=== PATIENT | female | born 1995 | race Caucasian/White ===

== ENCOUNTER 2024-06-27 12:00 | Emergency (ER) | payer OTHER, SELFPAY ==
[2024-06-27 12:08] VITALS: BP 160/88; PULSE 92; TEMP 36.8; O2SAT 96; BMI 37.1
--- NOTE | 2024-06-27 12:22 | XR_ITS ---
The [address] [address] Patient Name: PABLO MARTIN MRN: [id number] date: 1995 Sex: F Assigned Patient Location: ER Current Patient Location: ER Accession/Order Number: [id number] Exam Date: 06/27/2024 12:38 Report Date: 06/27/2024 12:57 At the request of: SANTY RAPHAEL Procedure: XR chest 1V EXAMINATION: XR chest 1V HISTORY: cough COMPARISON: No relevant comparison available. FINDINGS: LUNGS: Mild haziness and subtle patchy opacities scattered within the left lung. VASCULATURE: No increased pulmonary vasculature. PLEURA: No pneumothorax, effusion, or pleural thickening. CARDIAC: No cardiomegaly or cardiac silhouette abnormality. MEDIASTINUM: No visible mass or adenopathy. BONES: No fracture or visible bone lesion. OTHER: Negative. XR/XR chest 1V IMPRESSION: 1. Underexpanded lungs with suspected mild left pulmonary infiltrates versus atelectasis. Electronically authenticated by: LIZA OSMAN Date: 06/27/2024 12:57
[2024-06-27] MEDS: PREDNISONE 20 MG TABLET 40 MG PO (12:34)
[2024-06-27] MEDS: KETOROLAC TROMETHAMINE 30 MG/ML VIAL IM (12:39)
[2024-06-27] MEDS: IPRATROPIUM/ALBUTEROL SULFATE 3 ML AMPUL.NEB IH (12:40)
[2024-06-27 12:43] VITALS: PULSE 100; O2SAT 98
[2024-06-27 13:02] LABS: Internal Control Within Normal Limits; Respiratory Syncytial Virus Not Detected (NOT DETECTE); SARS-CoV-2 Ag NEGATIVE (NEGATIVE)
[2024-06-27 13:11] LABS: Influenza Virus A Antigen Negative; Influenza Virus B Antigen Negative; Internal Control Within Normal Limits
[2024-06-27] MEDS: LEVOFLOXACIN 750 MG TABLET PO (13:40)
[2024-06-27 13:43] VITALS: BP 136/88; PULSE 86; O2SAT 98
--- NOTE | 2024-06-27 14:01 | ED.GENADUL1 ---
HPI HPI - General Adult General Chief complaint: Upper Respiratory Infection Stated complaint: urti complaints Time Seen by Provider: 06/27/24 12:15 Mode of arrival: walk-in History of Present Illness HPI narrative: The patient presented to us with a almost 5 days history of flulike symptoms, but she mentioned that the cough is not getting any better she is also have some congestion and difficulty whenever she take a deep breath The patient have no sore throat there is some change in her voice No nausea no vomiting no diarrhea Related Data Previous Rx's ?Medication ?Instructions ?Recorded levofloxacin 750 mg tablet 750 mg PO DAILY 7 days #7 tabs 06/27/24 prednisone 20 mg tablet 40 mg (2 x 20 mg) PO DAILY 5 days 06/27/24 #10 tabs Allergies Allergy/AdvReac Type Severity Reaction Status Date / Time amoxicillin AdvReac Severe Hives Verified 06/27/24 12:08 Penicillins AdvReac Severe Hives Verified 06/27/24 12:08 Opioid HPI Opioid Management Most Recent Opioid Data: No Data to Display Review of Systems ROS Status of ROS 10 or more systems reviewed and unremarkable except as noted in history and below PFSH PFSH Social History Little interest or pleasure in doing things: not at all Feeling down, depressed, or hopeless: not at all Exam Narrative Exam Narrative: Nurses notes and vital signs reviewed and patient is not hypoxic. General: Well-appearing and in no apparent distress. Skin: Warm, dry, no pallor noted. No rash. Head: Normocephalic, atraumatic. Neck: Supple, non-tender. Eye: Pupils are equal, round and EOMI. No scleral icterus. Ears, Nose, Mouth, and Throat: TM are clear, no nasal mucosal hypertrophy. Oral mucosa is moist, no posterior oropharynx erythema, uvula is mid-line Cardiovascular: Regular Rate and Rhythm without murmur, gallop or rub. Respiratory: Rhonchi heard in both lung gallo Back: No midline thoracic or lumbar vertebral tenderness. No CVA tenderness Musculoskeletal: normal ROM, no calf or popliteal tenderness, no lower extremity edema/swelling GI: Abdomen is soft, non-distended. Normal bowel sounds. No masses appreciated. No tenderness to palpation. No rebound, guarding, or rigidity noted. Neurological: A&O x4. No cranial nerve dysfunction observed. No truncal ataxia. Moves all extremities. Sensation intact. Psychiatric: Cooperative and interactive. Normal mood and affect. Constitutional Vital Signs, click to edit/add: Last Vital Signs Temp 98.2 F 06/27/24 12:08 Pulse 86 06/27/24 13:43 Resp 18 06/27/24 13:43 BP 136/88 06/27/24 13:43 Pulse Ox 98 06/27/24 13:43 O2 Del Method Room Air 06/27/24 12:43 Course Vital Signs Vital signs: Vital Signs Temperature 98.2 F 06/27/24 12:08 Pulse Rate 92 H 06/27/24 12:08 Respiratory Rate 18 06/27/24 12:08 Blood Pressure 160/88 H 06/27/24 12:08 Pulse Oximetry 96 06/27/24 12:08 Oxygen Delivery Method Room Air 06/27/24 12:08 Temperature 98.2 F 06/27/24 12:08 Pulse Rate 86 06/27/24 13:43 Respiratory Rate 18 06/27/24 13:43 Blood Pressure 136/88 06/27/24 13:43 Pulse Oximetry 98 06/27/24 13:43 Oxygen Delivery Method Room Air 06/27/24 12:43 Medical Decision Making MDM Narrative Medical decision making narrative: The patient chest x-ray shows possible infiltrate in the left side COVID flu and RSV are negative Patient will be covered with levofloxacin in addition to prednisone only to help with her laryngitis Patient to continue hydration The patient is to follow up with primary care physician in next 2-3 days or to return to the emergency department should any of the signs or symptoms worsen or new symptoms develop. The patient agrees with the following Diagnosis and Treatment plan and the patient will be discharged home. Lab Data Labs: Lab Results 06/27/24 Range/Units 12:15 Influenza Type A Ag Negative Influenza Type B Ag Negative RSV Antigen Not detected (NOT DETECTE) SARS-CoV-2 Ag (CV2AG) Negative (NEGATIVE) Discharge Plan Discharge Chief Complaint: Upper Respiratory Infection Clinical Impression: Pneumonia, Laryngitis Patient Disposition: Home, Self-Care Time of Disposition Decision: 13:37 Condition: Good Prescriptions / Home Meds: New levofloxacin 750 mg tablet 750 mg PO DAILY 7 Days Qty: 7 0RF prednisone 20 mg tablet 40 mg PO DAILY 5 Days Qty: 10 0RF Print Language: Greenlandic Instructions: Community Acquired Pneumonia (DC) Referrals: REBECCA ARMSTRONG [Primary Care Provider] - 1 week Discharge Date/Time: 06/27/24 13:43
== END 2024-06-27 13:43 | disposition home or self-care (01) ==
PROVIDERS: Emergency Provider Emergency Medicine; PCP Internal Medicine
DX: J18.9 Pneumonia, unspecified organism (principal); J04.0 Acute laryngitis
CPT/HCPCS: 71045; 87420; 87804; 87811; 94640; 96372; 99284; J1885; J7512

== ENCOUNTER 2025-06-15 13:54 | Emergency (ER) | payer MEDICAID, SELFPAY ==
--- OUTSIDE RECORDS SUMMARY | 2011-08-18 10:45 | XMS_ITS | Continuity of Care Document ---
Author Organization [facility] Address [address] [place] [address] Phone Care Team Providers Care Line Palletizer Name Role Phone NathalyMaury Aguira Unavailable Unavailable Allergies, Adverse Reactions, Alerts Substance Reaction Status Criticality amoxicillin rash Active No Information Procedures Procedure Date HEP A VACC, PED/ADOL, 2 DOSE H PAPILLOMA VACC 3 DOSE IM PREVENTIVE COUNSELING, INDIV PREVENTIVE COUNSELING, INDIV HEP A VACC, PED/ADOL, 2 DOSE H PAPILLOMA VACC 3 DOSE IM H PAPILLOMA VACC 3 DOSE IM PREVENTIVE COUNSELING, INDIV OFFICE/OUTPATIENT VISIT, EST H PAPILLOMA VACC 3 DOSE IM PREVENTIVE COUNSELING, INDIV HEP A VACC, PED/ADOL, 2 DOSE H PAPILLOMA VACC 3 DOSE IM MENINGOCOCCAL VACCINE, IM TDAP VACCINE >7 IM Advance Directives Directive Yes / No Effective Date File Name Resuscitation Not Answered N/A N/A Life Support Not Answered N/A N/A Intubation Not Answered N/A N/A Antibiotics Not Answered N/A N/A IV Fluid Support Not Answered N/A N/A Tube Feed Not Answered N/A N/A Other Directive N/A N/A WARNING:The information contained in this section is historical and is provided for information only and does not constitute a legal document or any assurance that the information is still accurate. Please verify the information with the thomas of the legal document before using it for clinical purposes. Encounters Encounter Description Practice Location Reason(s) For Visit Diagnoses Date Provider Providers Copied on Encounter PREVENTIVE COUNSELING, [facility], [address], [place], [id number], [place] tel:[phone] [facility] Need for prophylactic vaccination and inoculation against viralhepatitis [facility]. [address], [place], [id number] , [place]. tel:[phone] PREVENTIVE COUNSELING, [facility], [address] [place] [address], [id number], [place] tel:[phone] [facility] Need for prophylactic vaccination and inoculation, other viral diseases [facility]. [address], [place], [id number] , [place]. tel:[phone] PREVENTIVE COUNSELING, [facility], [address], [place], [id number], [place] tel:[phone] [facility] No Information Nathalyi DO Mendiola. [address], [place], [id number] , [place]. tel:[phone] Family History Family Member Type Diagnosis Age At Onset No Information Immunizations Vaccine Date Status Comments HPV administered Source: New Imm unization Record Hep A (ped/adol, 2 dose) administered Radha rce: New Immunization Record HPV administered Source: New Imm unization Record HPV administered Source: New Imm unization Record Hep A (ped/adol, 2 dose) administered Radha rce: New Immunization Record Tdap administered Source: New Imm unization Record MCV4 (11-55 yrs) administered Source: New Immunization Record Payers Payer name Insurance type Covered republican ID Authoriza tion(s) No Information Social History Type Description Quantity Date Captured Comments Alcohol Use Details Unknown Caffeine Use Details Unknown Tobacco Use Status No Information Smoking Status No Information Sex Female Sexual Orientation Straight or heterosexual Mar Gender Identity Female Chief Complaint And Reason For Visit No Information Reason For Referral Reason For Referral No Information Plan Of Treatment Date Type Action Status Goal HPV (3rd). Due on 2 due Goal TD Vaccine. Due on 11 due Goal HPV (2nd). Due on 1 due Goal HPV (1st). Due on 1 due History Of Present Illness Encounter Date Complaint History Of Prese nt Illness No Information Functional Status Date Functional Assessmen t No Information Instructions Date Instruction Additional Infor mation No Information Assessments Type Assessment Date No Information Patient Care Teams Name Effective Dates (start - stop) Status Members No Information
[2025-06-15] VITALS (12 sets, daily range): BP systolic 135–159; BP diastolic 78–96; PULSE 104; TEMP 37.1; O2SAT 98–100; BMI 31.3
--- NOTE | 2025-06-15 14:10 | ED_ITS ---
HPI HPI - General Adult General Chief complaint: Allergic Reaction Stated complaint: POSSIBLE ALLERGIC REACTION Time Seen by Provider: 06/15/25 14:06 History of Present Illness HPI narrative: 29-year-old female presented for hives. They are on various areas of her body and it started last night. She took some Benadryl and fexofenadine but it did not help. No new medications or exposure to any new products. She is known to be allergic to cats and dogs and 2 types of mold. No difficulty breathing or swallowing. Related Data Previous Rx's ?Medication ?Instructions ?Recorded levofloxacin 750 mg tablet 750 mg PO DAILY 7 days #7 t abs 06/27/24 prednisone 20 mg tablet 40 mg (2 x 20 mg) PO DAILY 5 days 06/27/24 #10 tabs prednisone 10 mg tablet See Rx Instructions .Route 1 08/16/24 .COMPLEX #30 tabs Allergies Allergy/AdvReac Type Severity Reaction Status Date / Time amoxicillin AdvReac Severe Hives Verified 06/15/25 14:07 Penicillins AdvReac Severe Hives Verified 06/15/25 14:07 PET DANDER Allergy Severe Hives Uncoded 06/15/25 14:07 Review of Systems ROS Narrative A ten point review of systems is negative except as noted above. PFSH PFSH Social History Little interest or pleasure in doing things: not at all Feeling down, depressed, or hopeless: not at all Exam Narrative Exam Narrative: Nurses note and vital signs reviewed General:The patient appears well and in no apparent distress.Patient is resting comfortably on cart. Skin:Warm, dry, no pallor noted.There is urticaria in various areas of her body, primarily her torso but also present on her arms and legs. She has no tongue swelling. Head:Normocephalic, atraumatic Eye: Normal conjunctiva, no drainage Ears, Nose, Mouth, and Throat: oral mucosa is moist. Nares patent. Cardiovascular:Regular Rate and Rhythm Respiratory:Patient is in no distress, no accessory muscle use, lungs are clear to auscultation, no wheezing, rales or rhonchi Back:non-tender GI: Soft and nontender Musculoskeletal: The patient has no evidence of calf tenderness, no pitting edema, symmetrical pulses noted bilaterally Neurological:A&O, normal speech Psychiatric:Cooperative Constitutional Vital Signs, click to edit/add: Last Vital Signs Temp 98.7 F 12/14/25 14:11 Pulse 104 H 06/15/25 14:11 Resp 20 06/15/25 14:11 BP 159/96 H 06/15/25 14:11 Pulse Ox 100 06/15/25 14:11 O2 Del Method Room Air 06/15/25 14:11 Course Vital Signs Vital signs: Vital Signs Temperature 98.7 F 06/15/25 14:11 Pulse Rate 104 H 06/15/25 14:11 Respiratory Rate 20 06/15/25 14:11 Blood Pressure 159/96 H 06/15/25 14:11 Pulse Oximetry 100 06/15/25 14:11 Oxygen Delivery Method Room Air 06/15/25 14:11 Temperature 98.7 F 06/15/25 14:11 Pulse Rate 104 H 06/15/25 14:11 Respiratory Rate 20 06/15/25 14:11 Blood Pressure 159/96 H 06/15/25 14:11 Pulse Oximetry 100 06/15/25 14:11 Oxygen Delivery Method Room Air 06/15/25 14:11 Medical Decision Making MDM Narrative Medical decision making narrative: The patient presented with urticaria. She has not been on any new medications or been exposed to any new products. She states she has been under a lot of stress recently and this is certainly a possible cause for her symptoms. She was given IV Benadryl and Solu-Medrol and is greatly improved. She will be discharged home on prednisone and will continue yaxq-fpi-kxrzbrs Benadryl. Treatment diagnosis and follow-up were discussed with the patient. Differential Diagnosis Differential Diagnosis: Urticaria, allergic reaction Discharge Plan Discharge Chief Complaint: Allergic Reaction Clinical Impression: Urticaria Patient Disposition: Home, Self-Care Time of Disposition Decision: 15:25 Condition: Good Mode of Transportation: Private Vehicle Prescriptions / Home Meds: New prednisone 10 mg tablet See Rx Instructions .ROUTE .COMPLEX Qty: 30 0RF Rx Instructions: 4 by mouth daily for three days then 3 by mouth daily for three days then 2 by mouth daily for three days then 1 by mouth daily for three days No Action levofloxacin 750 mg tablet 750 mg PO DAILY 7 Days Qty: 7 0RF prednisone 20 mg tablet 40 mg PO DAILY 5 Days Qty: 10 0RF Print Language: Greenlandic Instructions: Urticaria (ED) Referrals: REBECCA ARMSTRONG [Primary Care Provider, Internal Medicine] - 1 week
--- OUTSIDE RECORDS SUMMARY | 2025-06-15 14:22 | XMS_ITS | Clinical Summary ---
Author Organization [facility] Address [address] [place] [address] Care Team Providers Care Loss Control Engineer Name Role Phone Drake Briggs DO Primary Care Provider [phone] Allergies Active AllergyReactionsCriticalityNoted BhtlOwfipsqkNnhzzximuqiAhpov73/07/2023 Medications MedicationSigDispense QuantityRefillsLast FilledStart DateEnd DateStatus albuterol HFA (Ventolin HFA) 90 mcg/act inhaler Indications:WheezingInhale 2 puffs every 6 (six) hours if needed for wheezing or shortness of breath 8 g 5Active cholecalciferol (Vitamin D-3) 50 MCG (1999) tablet Indications:Low vitamin D levelTake 1 tablet (50 mcg) by mouth Daily07/17/2024 6Active phentermine (Adipex-P) 37.5 MG tablet Take 37.5 mg by mouth Daily5Active sertraline (Zoloft) 50 MG tablet Indications:Anxiety and depressionTake 1 tablet (50 mg) by mouth Daily 90 tablet //6Active elagolix (Orilissa) tablet Indications:Endometriosis of peritoneumTake 1 tablet (150 mg) by mouth Daily 90 each /6Active omeprazole (PriLOSEC) [address] capsule Indications:Gastroesophageal reflux disease, unspecified whether esophagitis presentTAKE 1 CAPSULE BY MOUTH EVERY DAY DO NOT CRUSH OR CHEW 90 capsule 5Active Active Problems ProblemNoted DateDiagnosed DateLow vitamin D level07/17/2024Insulin resistance 07/17/2024Elevated LDL cholesterol level07/17/2024History of pre-eclampsia 07/17/2024sthma, exercise uerbgmg3205/05/2023 Overview (05/05/2023): no inhaler Abdominal pain, chronic, left lower oqiltiuy31/03/2023Status post laparoscopic assisted vaginal hysterectomy (LAVH)05/05/2023lass 2 obesity due to excess calories without serious comorbidity with body mass index (BMI) of 35.0 to 35.9 in adult05/05/2023Retained qnbfiw6605/05/2023 Overview (05/05/2023): suspicious that this resulted in cystic encasement , hence the anechoic rounded soft tissue areas with echodensity within- Video - given talk w/ Dr pedraza Adjustment disorder with mixed anxiety and depressed mood11/30/2022 Methylenetetrahydrofolate reductase tgwdpldyuf23/31/2023 Overview (05/05/2023): 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 : confers increased risk HC and if elevated HC then increased risk for thrombosis Immunizations ImmunizationAdministration DatesNext DueDTaP, Fxbhvpzxgtg43/07/2001,03/06/1997, 03/11/1996,01/04/1996,1995HPV, Elgapeznettf22/16/2012,03/16/2011, 01/13/2011Hep A, ped/adol, 2 dose08/18/2011,01/13/2011Hep B, Adolescent or Poisavabs56/09/1996,1995,1995HiB, exzlsfmtdlx43/11/1997,03/11/1996, 01/04/1996,1995MMR11/06/2000MMRV09/10/1996Meningococcal MYK6T8001/13/2011 Novel Wolubjkku-K7N8-58, nasal05/01/2009Polio, Plvnsoksubd52/07/2001,03/06/1997, 03/11/1996,01/04/1996,1995Tdap01/03/2019,11/12/2017,01/13/2011Varicella 12/03/1996 Family History Medical HistoryRelationNameCommentsNo Known ProblemsDaughterDiabetesFatherRobert A GardinPre diabetesHyperlipidemiaFatherRobert A GardinHypertensionFatherRobert A GardinSleep apneaFatherRobert A GardinHeart diseaseMaternal GrandfatherErnest R TeschnerHypertensionMaternal GrandfatherErnest R TeschnerArthritisMother Lisa A GardinHeart diseaseMotherJennifer A GardinHypertensionMotherJennifer A GardinLupusMotherJennifer A GardinThyroid diseaseMotherJennifer A GardinBreast cancerOtherHeart diseasePaternal GrandfatherMTHFR genePaternal Grandfather DiabetesPaternal GrandmotherSandra L Gardinpre diabetesHypertensionPaternal GrandmotherSandra L GardinMTHFR genePaternal GrandmotherSandra L GardinProstate cancerPaternal Great-GrandfatherBreast cancerPaternal Great-GrandmotherNo Known ProblemsSonRelationNameStatusCommentsBrother2 brothersDaughterFatherRobert A GardinAliveMaternal GrandfatherErnest R TeschnerDeceasedMotherJennifer A Gardin AliveOtherPaternal grandmother sisters and cousinPaternal GrandfatherPaternal GrandmotherSandra L GardinPaternal Great-GrandfatherPaternal Great-Grandmother Son Social History Tobacco UseTypesPacks/DayYears UsedDateSmoking Tobacco: NeverSmokeless Tobacco: Never Tobacco Cessation:Counseling Given: Not Answered Alcohol UseStandard Drinks/WeekCommentsYes2 (1 standard drink = 0.6 oz pure alcohol)Social drinker, once or twice a month, Caffeine intake: 1-2 cups per day coffee daily, tea, occasionally sodaAUDIT-CAnswerDate RecordedQ1: How often do you have a drink containing alcohol?Monthly or less05/08/2023Q2: How many drinks containing alcohol do you have on a typical day when you are drinking?1 or 2 05/08/2023Q3: How often do you have six or more drinks on one occasion?Never 05/08/2023CommentsUnknownSex and Gender InformationValueDate RecordedSex Assigned at DkzqjOjkizv40/31/2023 9:35 AM EDTLegal SgiPqjccv41/15/2023 7:23 PM EDTGender SukghavsCdngkh68/31/2023 9:35 AM EDTSexual OrientationStraight 11/30/2022 9:35 AM EDTOccupationIndustryJob Start DateJob End DateCosmetologist Not on fileNot on fileNot on file Last Filed Vital Signs Vital SignReadingTime TakenCommentsBlood Ycfioyxl731/8406 1:59 PM EDT Fxyjy4459 7:30 PM PSYNcwqnldcamz74.4 ??C (97.5 ??F)10/24/2024 7:30 PM EDTRespiratory Ljua752007/10/2024 1:19 PM ESTOxygen Vexzhzgqty14%10/24/2024 7:30 PM EDTInhaled Oxygen Concentration--Tikvmq18.4 kg (206 lb)12/26/2024 1:59 PM EDT Bjynlo715.2 cm (5' 7 )07/17/2024 11:13 AM ESTBody Mass Index32.26007/17/2024 11:13 AM EST Plan of Treatment DateTypeDepartmentCare Team (Latest Contact Info)Qddnaupcukh16/21/2026 11:00 AM ESTOffice Visit [facility] [address] [place] [address] Drake Briggs, DO [address] [place] [address] 01/01/2026 1:30 PM EDTOffice Visit [facility] [address] [place] [address] Saige Pedraza DO [address] [place] [address] Health MaintenanceDue DateLast DoneCommentsPneumococcal Vaccine: Pediatrics (0 to 5 Years) and At-Risk Patients (6 to 64 Years) (1 of 2 - PCV)08/31/2014COVID- 19 Vaccine (3 - 2024-26 season)/05/2021, 11/17/2020Influenza Vaccine (#1)2025 Insurance [facility] Address: [facility] [id number] [place] [id number] Care Teams Team MemberRelationshipSpecialtyStart DateEnd Date Drake Briggs DO [address] [facility] [address] [address] PCP - GeneralInternal Medicine12/07/22
[2025-06-15] MEDS: METHYLPREDNISOLONE SOD SUCC PF 125 MG/2 ML VIAL IVP (14:32)
[2025-06-15] MEDS: FAMOTIDINE/PF 20 MG/2 ML VIAL IV (14:32)
[2025-06-15] MEDS: DIPHENHYDRAMINE HCL 50 MG/ML VIAL IVP (14:32)
== END 2025-06-15 15:33 | disposition home or self-care (01) ==
PROVIDERS: Emergency Provider Emergency Medicine; PCP Internal Medicine
DX: L50.9 Urticaria, unspecified (principal)
CPT/HCPCS: 96374; 96375; 99284; J1200; J2919; J3490

== ENCOUNTER 2025-06-16 02:32 | Emergency (ER) | payer MEDICAID, SELFPAY ==
--- OUTSIDE RECORDS SUMMARY | 2011-08-18 10:45 | XMS_ITS | Continuity of Care Document ---
Author Organization [facility] Address [address] [place] [address] Phone Care Team Providers Care Clothing Sorter Name Role Phone NathalyMaury Aguiar Unavailable Unavailable Allergies, Adverse Reactions, Alerts Substance [...] Provider Providers Copied on Encounter PREVENTIVE COUNSELING, [facility], [address], [place], [id number], [place] tel:[phone] [facility] Need for prophylactic vaccination and inoculation against viralhepatitis [facility]. [address], [place], [id number] , [place]. tel:[phone] PREVENTIVE COUNSELING, [facility], [address] [place] [address], [id number], [place] tel:[phone] [facility] Need for prophylactic vaccination and inoculation, other viral diseases [facility]. [address], [place], [id number] , [place]. tel:[phone] PREVENTIVE COUNSELING, [facility], [address], [place], [id number], [place] tel:[phone] [facility] No Information Nathalyi DO Mendiola. [address], [place], [id number] , [place]. tel:[phone] Family History Family Member Type Diagnosis Age [...] Record Payers Payer name Insurance type Covered democrat ID Authoriza tion(s) No Information Social History [...]
[2025-06-16 02:35] VITALS: BP 156/88; PULSE 85; TEMP 36.7; O2SAT 98; BMI 32.3
--- OUTSIDE RECORDS SUMMARY | 2025-06-16 02:49 | XMS_ITS | Clinical Summary ---
Author Organization [facility] Healthcare Address [address] [place] [address] Care Team Providers Care Counter Cutter Name Role Phone Drake Briggs DO Primary Care Provider [phone] Allergies Active AllergyReactionsCriticalityNoted GtsxDiqxbjzmZddsmolnmuaWlggf24/07/2023 Medications MedicationSigDispense QuantityRefillsLast FilledStart DateEnd DateStatus albuterol [...] LDL cholesterol level07/17/2024History of pre-eclampsia 07/17/2024sthma, exercise ifsgdoi1405/05/2023 Overview (05/05/2023): no inhaler Abdominal pain, chronic, left lower zognfgiq91/03/2023Status post laparoscopic assisted vaginal hysterectomy (LAVH)05/05/2023lass 2 obesity due to excess calories without serious comorbidity with body mass index (BMI) of 35.0 to 35.9 in adult05/05/2023Retained rukgeh8205/05/2023 Overview (05/05/2023): suspicious that this resulted in cystic encasement , hence the anechoic rounded soft tissue areas with echodensity within- Video - given talk w/ Dr pedraza Adjustment disorder with mixed anxiety and depressed mood11/30/2022 Methylenetetrahydrofolate reductase mestsoaijf08/31/2023 Overview (05/05/2023): 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 : confers increased risk HC and if elevated HC then increased risk for thrombosis Immunizations ImmunizationAdministration DatesNext DueDTaP, Uisdtqwyjmn64/07/2001,03/06/1997, 03/11/1996,01/04/1996,1995HPV, Uhuqdqiajffv41/16/2012,03/16/2011, 01/13/2011Hep A, ped/adol, 2 dose08/18/2011,01/13/2011Hep B, Adolescent or Sukwaynij16/09/1996,1995,1995HiB, jgvvsnmuxvn92/11/1997,03/11/1996, 01/04/1996,1995MMR11/06/2000MMRV09/10/1996Meningococcal EGW3N4601/13/2011 Novel Rdehgsyyy-E3P3-53, nasal05/01/2009Polio, Binilvvkvba06/07/2001,03/06/1997, 03/11/1996,01/04/1996,1995Tdap01/03/2019,11/12/2017,01/13/2011Varicella 12/03/1996 Family History Medical HistoryRelationNameCommentsNo Known [...] 05/08/2023CommentsUnknownSex and Gender InformationValueDate RecordedSex Assigned at XgfifXqkrms67/31/2023 9:35 AM EDTLegal MrmKlghdj72/15/2023 7:23 PM EDTGender EgejwcteKjvifc48/31/2023 9:35 AM EDTSexual OrientationStraight 11/30/2022 9:35 AM EDTOccupationIndustryJob Start DateJob End DateCosmetologist Not on fileNot on fileNot on file Last Filed Vital Signs Vital SignReadingTime TakenCommentsBlood Snkxlmpm656/8406 1:59 PM EDT Feyhg2001 7:30 PM BSEYzjlnetifno62.4 ??C (97.5 ??F)10/24/2024 7:30 PM EDTRespiratory Lxvw072007/10/2024 1:19 PM ESTOxygen Ujktzximdz03%10/24/2024 7:30 PM EDTInhaled Oxygen Concentration--Uxtqbz65.4 kg (206 lb)12/26/2024 1:59 PM EDT Vetkho330.2 cm (5' 7 )07/17/2024 11:13 AM ESTBody Mass Index32.26007/17/2024 11:13 AM EST Plan of Treatment DateTypeDepartmentCare Team (Latest Contact Info)Xzszbohyjzj90/21/2026 11:00 AM ESTOffice Visit [facility] [address] [place] [address] Drake Briggs, DO [address] [place] [address] 01/01/2026 1:30 PM EDTOffice Visit [facility] [address] [place] [address] Saige Pedraza DO [address] [place] [address] Health MaintenanceDue DateLast DoneCommentsPneumococcal Vaccine: Pediatrics (0 to 5 Years) and At-Risk Patients (6 to 64 Years) (1 of 2 - PCV)08/31/2014COVID- 19 Vaccine (3 - 2024-26 season)/05/2021, 11/17/2020Influenza Vaccine (#1)2025 Insurance [facility] Address: [facility] [id number] [place] [id number] Care Teams Team MemberRelationshipSpecialtyStart DateEnd Date Drake Briggs DO [address] [facility] [address] [address] PCP - GeneralInternal Medicine12/07/22
--- NOTE | 2025-06-16 02:53 | ED_ITS ---
HPI HPI - General Adult General Chief complaint: Allergic Reaction Stated complaint: RASH Time Seen by Provider: 06/16/25 02:35 Source: patient Mode of arrival: walk-in Limitations: no limitations History of Present Illness HPI narrative: Patient is a 29-year-old female presenting to the emergency department for evaluation of hives. Patient states that her symptoms began yesterday sponta neously. She was seen in the emergency department yesterday afternoon for the symptoms. She was given IM steroids and Benadryl, which resolved her symptoms. She was discharged with prednisone taper and Benadryl. She states that approximately 5 hours after discharge, she started having recurrence of the hives. She took prednisone and Benadryl as prescribed, however her symptoms progressed. She states she has some chest tightness and some swelling around her eye, however this has resolved. She is currently asymptomatic without chest pain, shortness of breath, tongue swelling, lip swelling, trouble breathing, trouble swallowing, nausea, vomiting, or abdominal pain. She is otherwise healthy with no chronic medical conditions. No recent changes in her medications. No new detergents, soaps, shampoos, pets, or other possible allergen exposures. Related Data Home Medications ?Medication ?Instructions ?Recorded ?Confirmed omeprazole 20 mg capsule,delayed mg 06/16/25 release phentermine 37.5 mg tablet mg 06/16/25 sertraline 50 mg tablet mg 06/16/25 Previous Rx's ?Medication ?Instructions ?Recorded levofloxacin 750 mg tablet 750 mg PO DAILY 7 days #7 t abs 06/27/24 prednisone 20 mg tablet 40 mg (2 x 20 mg) PO DAILY 5 days 06/27/24 #10 tabs prednisone 10 mg tablet See Rx Instructions .Route 1 08/16/24 .COMPLEX #30 tabs epinephrine 0.3 mg/0.3 mL 0.3 mg (0.3 mL) IM Q10M PRN 06/16/25 injection, auto-injector anaphylaxis #2 ea Allergies Allergy/AdvReac Type Severity Reaction Status Date / Time amoxicillin AdvReac Severe Hives Verified 06/16/25 02:34 Penicillins AdvReac Severe Hives Verified 06/16/25 02:34 PET DANDER Allergy Severe Hives Uncoded 06/16/25 02:34 Review of Systems ROS Status of ROS 10 or more systems reviewed and unremark able except as noted in history and below [facility] Social History Little interest or pleasure in doing things: not at all Feeling down, depressed, or hopeless: not at all Exam Narrative Exam Narrative: CONSTITUTIONAL: Well-appearing, answering questions and following commands appropriately SKIN: Urticaria diffusely across the face and chest, back, extremities, and abdomen. EYES: Sclerae white. No periorbital edema. EARS, NOSE, THROAT: Moist oral mucosa. No swelling of the lips/tongue/face/neck. Speaking with a normal voice. No drooling. No trismus. RESPIRATORY: Clear to auscultation bilaterally, no wheezes, crackles, or stridor, no use of accessory muscles CARDIOVASCULAR: Normal rate and regular rhythm. There is no S3, S4, murmur, rub. GASTROINTESTINAL: Abdomen is soft, nontender, and nondistended. MUSCULOSKELETAL: No peripheral edema. NEUROLOGIC: Patient is awake and alert. Facies were symmetrical. Constitutional Vital Signs, click to edit/add: Last Vital Signs Temp 98.1 F 06/16/25 02:35 Pulse 85 06/16/25 02:35 Resp 16 06/16/25 02:35 BP 156/88 H 06/16/25 02:35 Pulse Ox 98 06/16/25 02:35 O2 Del Method Room Air 06/16/25 02:35 Course Vital Signs Vital signs: Vital Signs Temperature 98.1 F 06/16/25 02:35 Pulse Rate 85 06/16/25 02:35 Respiratory Rate 16 06/16/25 02:35 Blood Pressure 156/88 H 06/16/25 02:35 Pulse Oximetry 98 06/16/25 02:35 Oxygen Delivery Method Room Air 06/16/25 02:35 Temperature 98.1 F 06/16/25 02:35 Pulse Rate 85 06/16/25 02:35 Respiratory Rate 16 06/16/25 02:35 Blood Pressure 156/88 H 06/16/25 02:35 Pulse Oximetry 98 06/16/25 02:35 Oxygen Delivery Method Room Air 06/16/25 02:35 Medical Decision Making [facility] Narrative Medical decision making narrative: Patient's history and physical examination is consistent with hypersensitivity reaction, urticaria/hives. She was seen in the emergency department yesterday for the symptoms and was prescribed prednisone, despite this, her symptoms recurred. She has no evidence of anaphylaxis/angioedema without GI or respiratory/mucous membrane involvement. She was retreated with IM dexamethasone, IM Benadryl, and oral famotidine. On reevaluation, patient states she feels improved and her urticaria is resolving. I do believe she is stable for discharge. She was given information for the allergy/immunology clinic in [place] and instructed her to follow-up as needed. She was given a prescription for epinephrine autoinjectors 0.3mg should she experience symptoms of anaphylaxis. Return precautions were given including any new or concerning symptoms, including symptoms of anaphylaxis. Patient understands and agrees to plan. FINAL IMPRESSION: #Acute urticaria DISPOSITION: Discharged home CONDITION: Good Discharge Plan Discharge Chief Complaint: Allergic Reaction Clinical Impression: Urticaria Patient Disposition: Home, Self-Care Time of Disposition Decision: 03:30 Condition: Good Mode of Transportation: Private Vehicle Prescriptions / Home Meds: New epinephrine 0.3 mg/0.3 mL auto-injector 0.3 mg IM Q10M PRN (Reason: anaphylaxis) Qty: 2 0RF Rx Instructions: for 2 doses No Action levofloxacin 750 mg tablet 750 mg PO DAILY 7 Days Qty: 7 0RF prednisone 20 mg tablet 40 mg PO DAILY 5 Days Qty: 10 0RF prednisone 10 mg tablet See Rx Instructions .ROUTE .COMPLEX Qty: 30 0RF Rx Instructions: 4 by mouth daily for three days then 3 by mouth daily for three days then 2 by mouth daily for three days then 1 by mouth daily for three days phentermine 37.5 mg tablet omeprazole 20 mg capsule,delayed release(DR/EC) sertraline 50 mg tablet Print Language: Telugu Instructions: Urticaria (ED) Referrals: Michael Castrejon [Other, Allergy & Immunology] - As needed Clinical Impression: Urticaria REBECCA ARMSTRONG [Primary Care Provider, Internal Medicine] - 1 week
[2025-06-16] MEDS: FAMOTIDINE 20 MG TABLET 40 MG PO (02:58)
[2025-06-16] MEDS: DEXAMETHASONE SOD PHOS 10 MG/ML VIAL IM (02:58)
[2025-06-16] MEDS: DIPHENHYDRAMINE HCL 50 MG/ML VIAL IM (02:59)
[2025-06-16 03:36] VITALS: BP 128/72; PULSE 88; O2SAT 98
== END 2025-06-16 03:36 | disposition home or self-care (01) ==
PROVIDERS: Emergency Provider Student in an Organized Health Care Education/Training Program; PCP Internal Medicine
DX: L50.9 Urticaria, unspecified (principal)
CPT/HCPCS: 96372; 99284; J1100; J1200